=== PATIENT | female | born 1975 | race Caucasian/White ===

== ENCOUNTER 2017-04-29 14:09 | Emergency (ER) | payer SELFPAY ==
[2017-04-29] MEDS: LIDOCAINE WITH 8.4% SOD BICARB 3 ML DISP.SYRIN. IJ (15:27)
== END 2017-04-29 15:59 | disposition home or self-care (01) ==
LOC: ER 14:09
DX: L73.2 Hidradenitis suppurativa (principal); N61.1 Abscess of the breast and nipple; Z90.49 Acquired absence of other specified parts of digestive tract; Z98.51 Tubal ligation status
CPT/HCPCS: 10061; 87071; 87075; 87205; 99284